=== PATIENT | female | born 1990 | race Asian ===

== ENCOUNTER 2019-12-04 07:38 | Inpatient (IN) ==
[2019-12-04] MEDS ORDERED: OXYTOCIN 30 UNITS/500 ML BAG IV PRN ×2 (08:25→08:27)
--- NOTE | 2019-12-04 08:30 | Labor Progress Brief Note ---
Date of Service December 04, 2019 Subjective notes some vb yesterday. +fm Assessment & Plan (1) IUGR (intrauterine growth restriction): (2) with 39 completed weeks gestation: Admission and Anticipated Discharge Date Admission Date: December 04, 2019 Rascon placed. Plan pitocin per Dr. Herrera . Fetus category one. anticipate . Physical Exam Constitutional: WD/WN, vitals as above Gastrointestinal (Abdomen): soft, gravid, nt Psychiatric: A+Ox3, euthymic affect Genitourinary: cx--visually closed with length cervical rascon placed under direct visualization through the cervix and balloon filled with 30 cc sterile water toco--none efm--130s with mod variability, accels to 150s, no decels Results & Data ([facility]) Vital Signs (Past 12 Hours) Vital Signs Pulse BP 12/04/19 07:53 83 125/77 Coding Level of Care Code None Diagnoses IUGR (intrauterine growth restriction) with 39 completed weeks gestation Z3A.39
--- NOTE | 2019-12-04 08:52 | History & Physical Report ---
Date of Service December 04, 2019 Assessment & Plan (1) : Kendrick is a 29 y/o female currently at 39-1/7 WGA with an LOVE 12/10/19 as determined by US#1 who is here for IOL in the setting of IUGR. Her was complicated by IUGR (EFW 5%, AC 2%). Patient and her , Omer, require translation services in Mandarin Uzbek for limited [place] proficiency. Fetus cat I. - OK to proceed with IOL with Pitocin protocol - Patient requesting epidural -- anesthesia will be consulted - GBS negative - Rapid COVID swab ordered -- none on-file Code: Full code Diet: NPO (2) IUGR (intrauterine growth restriction): Admission and Anticipated Discharge Date Admission Date: December 04, 2019 History of Present Illness Primary Care Provider: [facility] Kendrick is a 29 y/o female currently at 39-1/7 WGA with an LOVE 12/10/19 as determined by US#1 who is here for IOL in the setting of IUGR. Her was complicated by IUGR. Kendrick and her , Omer, require translation services (Mandarin Uzbek) for limited [place] proficiency. Denies contractions; endorses good movement; denies fluid loss; no bloody show Had regular appointments with OB. Labs: (Date 05/29/19) Blood type: B+ Antibody screen: negative H.1 Hct: 35.0 WBC: 9.46 Plt: 141 Rubella: immune VDRL/RPR: NR Gonorrhea: negative Chlamydia: negative HIV: negative HbSAg: negative GBS: negative SARS-CoV-2 (COVID-19): Pending (rapid test obtained at admission) Other screens: cff-DNA: low risk (see scanned documents) CF: negative SMA: negative Allergies Allergy/AdvReac Type Severity Reaction Status Date / Time Cephalosporins Allergy Verified 12/03/19 11:08 Home Medications Home Medications Medication Instructions Recorded Confirmed Type prenat.vits,bartolome,vvk-swro-jhamw 1 tab PO DAILY 05/22/19 12/04/19 History Patient History Medical History (Updated 12/04/19 @ 08:30 by Susan Mera MD, FACOG) Encounter for anatomic survey Hx of varicella Surgical History No pertinent past surgical history Family History (Updated 05/22/19 @ 11:05 by Eden Hunter) Father Dyslipidemia Heart disease Hypertension Grandmother (Maternal) Twins live born in hospital Social History (Updated 05/22/19 @ 11:06 by Eden Hunter) Smoking Status: Never smoker Hx Alcohol Use: No Hx Substance Use: No Preferred Language: Mandarin Uzbek Communication Ability: Effective Communication Tools: IPad Die Out Worker Required: Yes Beliefs That Will Affect Care: None marital status: marital status details: Omer Flanagan (29) [phone] Current Living Situation: Spouse Current Living Situation Comment: lives with and sister current occupational status: student current occupation: [employer] Other Information That Helps Us Care for You: No Feels Safe at Home: Yes Safety Concerns: Feels Safe At This Time Assistive Devices: None Review of Systems no fever, no chills and no sweats denies headache no dyspnea no chest pain, no dyspnea, no dyspnea at rest and no palpitations no dysuria no breast pain Physical Exam Physical Exam: General: Alert, oriented. No acute distress. Cardiac: Regular rate and rhythm, no murmurs/rubs/gallops. Respiratory: Clear to auscultation bilaterally a/p, no wheezes/rales/rhonchi. No increased work of breathing. Symmetrical chest rise. No respiratory distress. Pelvic: Per Dr. Mera -- visually closed, cervical De Los Santos in place Lower Extremities: No lower extremity edema or swelling. No deep calf pain. Magdalena's negative bilaterally Results & Data ([facility]) Vital Signs (Past 12 Hours) Vital Signs Pulse BP 12/04/19 07:53 83 125/77 Code Status & VTE Plan VTE Prophylaxis Plan VTE Prophylaxis will be ordered: No Monitoring External Monitor Baseline: 130s Variability: moderate Accelerations: 15x15 Decelerations: none Tocodynamometer No contractions currently Resident Activity Tracking Resident Involvement: Resident Care Provided Care Provided: Adult Hospital Medicine and OB Delivery
[2019-12-04] MEDS: LACTATED RINGER'S 1,000 ML IV PRN ×3 (08:59→19:00)
[2019-12-04 09:07] LABS: Hematocrit (blood only) 34.7 % (37-47); Hemoglobin 11.9 g/dL (12.0-16.0); Mean Corpuscular Hemoglobin 32.5 pg (25-34); Mean Corpuscular Hgb Conc 34.3 g/dL (32-36); Mean Corpuscular Volume 94.8 fL (80-100); Mean Platelet Volume 11.5 fL (7.4-10.4); Platelet Count 75 K/uL (130-400); Platelet Estimate Decreased (Normal); RDW Coefficient of Variation 13.4 % (11.5-14.5); RDW Standard Deviation 46.4 fL (36.4-46.3); Red Blood Count 3.66 M/uL (4.2-5.4); White Blood Count 6.14 K/uL (4.8-10.8)
[2019-12-04 10:25] LABS: INR 0.9 (0.9-1.1); Partial Thromboplastin Time 28.6 Seconds (21.0-31.0); Prothrombin Time 9.8 Seconds (9.0-12.0)
[2019-12-04 10:49] LABS: Albumin Level 2.5 gm/dl (3.4-5.0); BUN Creatinine Ratio 21.4 (10-20); Calcium 8.7 mg/dl (8.5-10.1); Creatinine Clr Calc Pharmacy 103.8 ml/min; Est GFR (African American) 137.3; Est GFR (Non-African American) 118.5; Potassium 4.2 mmol/L (3.5-5.1)
[2019-12-04 10:51] LABS: Albumin Globulin Ratio 0.7 (0.9-2); Bilirubin,Total 0.3 mg/dl (0.2-1); Globulin 3.8 gm/dl (2.5-4.0); Total Protein 6.3 gm/dl (6.4-8.2)
[2019-12-04 15:37] LABS: Platelet Count 81 K/uL (130-400)
--- NOTE | 2019-12-04 17:05 | Labor Progress Brief Note ---
Date of Service December 04, 2019 Subjective Reason For Note: Routine Evaluation Assessment & Plan (1) : (2) IUGR (intrauterine growth restriction): 29yo G1 a 39.1 weeks GA. IOL for IUGR at term 1. Fetus: Cat 1 2. Labor: Progressing. s/p rascon. Continue pitocin. AROM after epidural 3. GBS: Neg 4. Vitals WNL 5. Gestational thrombocytopenia: Stable Admission and Anticipated Discharge Date Admission Date: December 04, 2019 Physical Exam Genitourinary: OB Exam Abdomen: + vertex Manual OB Exam: + cervical dilation 4 cm, + cervical effacement 80% and + station -1 OB Exam Monitor Tracing: + external FHT monitor used, + external uterine monitor used, + category I and + normal FHT variability; no early decelerations present, no late decelerations present and no variable decelerations Results & Data ([facility]) Vital Signs (Past 12 Hours) Vital Signs Temp Pulse Resp BP 12/04/19 16:30 18 12/04/19 16:28 72 116/73 12/04/19 15:00 18 12/04/19 14:45 70 139/86 12/04/19 14:00 18 12/04/19 13:31 71 118/69 12/04/19 13:30 36.6 C 20 12/04/19 12:30 20 12/04/19 12:00 18 12/04/19 11:30 16 12/04/19 11:18 65 112/71 12/04/19 11:00 20 12/04/19 10:30 20 12/04/19 10:00 20 12/04/19 09:30 18 12/04/19 09:00 20 12/04/19 08:30 18 12/04/19 08:07 18 12/04/19 08:00 36.7 C 20 12/04/19 07:53 83 125/77 Coding Level of Care Code None Diagnoses Z34.90 IUGR (intrauterine growth restriction)
[2019-12-04] MEDS ORDERED: ePHEDrine sulfate 50 MG/ML AMP ONE (17:29)
[2019-12-04] MEDS ORDERED: BUPIVACAINE 0.25% 30 ML VIAL ONE (17:30)
[2019-12-04] MEDS ORDERED: fentaNYL 2MCG/ML ROPIVACAINE 1.25MG/ML 100 ML BAG EPI ONE (17:30)
[2019-12-04] MEDS ORDERED: fentaNYL citrate 100 MCG/2 ML VIAL ONE (17:30)
[2019-12-04] MEDS ORDERED: SODIUM CHLORIDE 0.9% INJ 10 ML VIAL ONE (17:59)
[2019-12-04] MEDS ORDERED: ONDANSETRON INJ 2 MG/ML 2 ML VIAL IV PRN (18:34)
[2019-12-04] MEDS ORDERED: NALOXONE HCL 0.4 MG/1 ML VIAL/CARP IV PRN (18:34)
[2019-12-04] MEDS ORDERED: NALOXONE HCL 1 MG in SODIUM CHLORIDE 0.9% 1000ML 1,000 ML IV PRN (18:34)
[2019-12-04] MEDS ORDERED: diphenhydrAMINE 50 MG/ML VIAL IV PRN (18:34)
[2019-12-04] MEDS ORDERED: fentaNYL 2MCG/ML ROPIVACAINE 1.25MG/ML 100 ML BAG EPI PRN (18:34)
[2019-12-04] MEDS ORDERED: ePHEDrine sulfate 50 MG/ML AMP IV PRN (18:34)
[2019-12-04] MEDS ORDERED: PROMETHAZINE HCL 6.25 MG in SODIUM CHLORIDE 0.9% 50 ML IV PRN (18:34)
--- NOTE | 2019-12-04 18:36 | Anesthesiology Consultation ---
Date of Service December 04, 2019 Assessment & Plan (1) Encounter for pre-operative examination: Chart Review Chart Review: Patient NOT seen in Pre Admission Testing and Acceptable Risk for Labor Epidural Consults Requested none ASA ASA2 Proposed Anesthesia Anesthesia Type: Labor Epidural Risk / Benefits Reviewed With: PT / POA / Parent / Guardian, Accepts Plan and Informed Consent Obtained History Height/Weight Height: 5 ft 3.78 in Weight: 60.781 kg Allergies Allergy/AdvReac Type Severity Reaction Status Date / Time Cephalosporins Allergy Verified 12/03/19 11:08 Medications Home Medications Medication Instructions Recorded Confirmed Last Taken prenat.vits,bartolome,snt-kxcq-vdjtx 1 tab PO DAILY 05/22/19 12/04/19 12/04/19 Active Medications Generic Name Dose Route Start Last Admin Trade Name Freq PRN Reason Stop Dose Admin Lactated Ringer's 1,000 mls @ 125 mls/hr 12/04/19 08:25 12/04/19 18:03 Lr IV 12/06/19 08:24 125 mls/hr .Q8H PRN Infusion L&D Protocol Protocol Oxytocin 30 units in 500 mls @ 3 mls/hr 12/04/19 08:27 12/04/19 10:35 Pitocin IV 12/06/19 08:26 0.18 units/hr .Q24H PRN 3 mls/hr Labor Induction/Augmentation Titration Protocol 0.18 UNITS/HR NPO Date Last Intake of Fluids: 12/04/19 Time Last Intake of Fluids: 08:00 Date Last Intake of Solids: 12/04/19 Time Last Intake of Solids: 08:00 Past Medical History Medical History Encounter for anatomic survey Hx of varicella Exercise / Class Metabolic Activity II 4-5 Yardwork/Stairs/Walk up hill Past Family History Family History Father Dyslipidemia Heart disease Hypertension Grandmother (Maternal) Twins live born in hospital Past Surgical History Surgical History No pertinent past surgical history Past Anesthesia History No Hx of Anesthesia Complications and No Family Hx of Anesthesia Complications History of PONV No Hx of PONV and No Hx of Motion Sickness Social History Smoking Status: Never smoker Hx Alcohol Use: No Hx Substance Use: No substance use type: does not use Physical Exam Vital Signs Last Vital Signs Temp 36.6 C 12/04/19 17:00 Pulse 84 12/04/19 18:34 Resp 20 12/04/19 18:00 BP 112/74 12/04/19 18:34 Pulse Ox 98 12/04/19 18:34 ENMT Mouth: no dentition abnormality Thyromental Distance: > or= 3.5 Finger Breadths Mallampati Class: II Neck normal visual inspection Respiratory normal respiratory effort Auscultation: lungs clear to auscultation bilaterally Cardiovascular Rate/Rhythm: regular rate and regular rhythm Psychiatric Orientation: alert Testing Laboratory Results 12/04/19 15:23 12/04/19 10:02 PT 9.8 Seconds (9.0-12.0) 12/04/19 10:02 INR 0.9 (0.9-1.1) 12/04/19 10:02 APTT 28.6 Seconds (21.0-31.0) 12/04/19 10:02
--- NOTE | 2019-12-04 19:00 | Labor Progress Brief Note ---
Date of Service December 04, 2019 Subjective Reason For Note: Routine Evaluation Assessment & Plan (1) : (2) IUGR (intrauterine growth restriction): 29yo G1 a 39.1 weeks GA. IOL for IUGR at term 1. Fetus: Cat 1 2. Labor: Progressing. s/p rascon. Continue pitocin. AROM 3. GBS: Neg 4. Vitals WNL 5. Gestational thrombocytopenia: Stable Admission and Anticipated Discharge Date Admission Date: December 04, 2019 Physical Exam Genitourinary: OB Exam Abdomen: + vertex Manual OB Exam: + cervical dilation 5 cm, + cervical effacement 80%, + station -1 and + amniotic fluid clear and bloody OB Exam Monitor Tracing: + category I and + normal FHT variability Results & Data ([facility]) Vital Signs (Past 12 Hours) Vital Signs Temp Pulse Resp BP Pulse Ox 12/04/19 18:58 125/68 12/04/19 18:54 76 98 12/04/19 18:53 81 129/61 12/04/19 18:49 61 98 12/04/19 18:48 78 117/70 12/04/19 18:44 98 H 98 12/04/19 18:43 71 115/73 12/04/19 18:39 82 97 12/04/19 18:37 73 124/76 12/04/19 18:34 84 112/74 98 12/04/19 18:33 81 117/68 12/04/19 18:30 18 12/04/19 18:29 85 125/70 97 12/04/19 18:27 80 114/66 12/04/19 18:26 83 139/78 12/04/19 18:25 81 92 12/04/19 18:24 79 96 12/04/19 18:19 74 96 12/04/19 18:14 92 H 96 12/04/19 18:09 79 95 12/04/19 18:08 85 134/87 12/04/19 18:04 75 98 12/04/19 18:00 67 20 139/88 12/04/19 17:59 68 97 12/04/19 17:58 66 132/83 12/04/19 17:56 70 136/86 12/04/19 17:54 66 126/80 98 12/04/19 17:52 67 132/86 12/04/19 17:50 64 125/85 12/04/19 17:49 73 98 12/04/19 17:48 63 122/78 12/04/19 17:44 72 99 12/04/19 17:39 72 97 12/04/19 17:34 68 98 12/04/19 17:30 20 12/04/19 17:29 73 98 12/04/19 17:24 77 99 12/04/19 17:19 71 99 12/04/19 17:00 36.6 C 20 12/04/19 16:30 18 12/04/19 16:28 72 116/73 12/04/19 15:00 18 12/04/19 14:45 70 139/86 12/04/19 14:00 18 12/04/19 13:31 71 118/69 12/04/19 13:30 36.6 C 20 12/04/19 12:30 20 12/04/19 12:00 18 12/04/19 11:30 16 12/04/19 11:18 65 112/71 12/04/19 11:00 20 12/04/19 10:30 20 12/04/19 10:00 20 12/04/19 09:30 18 12/04/19 09:00 20 12/04/19 08:30 18 12/04/19 08:07 18 12/04/19 08:00 36.7 C 20 12/04/19 07:53 83 125/77 Coding Level of Care Code None Diagnoses Z34.90 IUGR (intrauterine growth restriction)
[2019-12-05] MEDS: LACTATED RINGER'S 1,000 ML IV PRN (03:33)
[2019-12-05] MEDS ORDERED: HYDROCORTISONE ACETATE 25 MG SUPP PR PRN (04:22)
[2019-12-05] MEDS ORDERED: DIPHTHERIA/TETANUS/PERTUSSIS 0.5 ML SYR/VIAL IM ONE (04:22)
[2019-12-05] MEDS ORDERED: OXYTOCIN 30 UNITS/500 ML BAG IV PRN (04:22)
[2019-12-05] MEDS ORDERED: ACETAMINOPHEN 325 MG TAB PO PRN (04:22)
[2019-12-05] MEDS ORDERED: bisacodyL 10 MG SUPP PR PRN (04:22)
[2019-12-05] MEDS ORDERED: SUPERCREAM 0.870% 15 GM JAR EXT PRN (04:22)
[2019-12-05] MEDS ORDERED: IBUPROFEN 600 MG TAB PO PRN (04:22)
[2019-12-05] MEDS ORDERED: BENZOCAINE 20% AER SPR 82.5 GM CAN EXT PRN (04:22)
--- NOTE | 2019-12-05 06:01 | Anesthesia Procedure Note ---
Date of Service December 05, 2019 Anesthesia Post Epidural Note Vital Signs Vital Signs: Temp Pulse Resp BP Pulse Ox 37.0 C 99 H 20 94/65 L 92 12/05/19 03:29 12/05/19 05:48 12/05/19 05:15 12/05/19 05:48 12/05/19 05:27 Notes Mental Status: alert / awake / arousable Nausea / Vomiting: adequately controlled Pain: adequately controlled Airway Patency, RR, SpO2: stable & adequate BP & HR: stable & adequate Hydration State: stable & adequate Neuraxial Anesthesia: was administered and sensory block is resolving Anesthetic Complications: no major complications apparent and Pt Satisfied with anesthetic care Epidural: Removed without complications and With tip intact
[2019-12-05] MEDS: PRENATAL VITAMIN 1 TAB PO SCH (09:30)
[2019-12-05] MEDS: DOCUSATE SODIUM 100 MG CAP PO SCH ×2 (09:30→20:32)
--- NOTE | 2019-12-05 11:33 | Delivery Summary ---
DATE OF OPERATION: 12/05/2019 PROCEDURE: Normal spontaneous vaginal delivery, second-degree perineal laceration repair. SURGEON: Clem Herrera MD. PREOPERATIVE DIAGNOSES: 1. Single intrauterine at 39 weeks 2 days gestational age. 2. Intrauterine growth restriction. POSTOPERATIVE DIAGNOSES: 1. Single intrauterine at 39 weeks 2 days gestational age. 2. Intrauterine growth restriction. 3. Status post delivery. ESTIMATED BLOOD LOSS: 300 mL. DRAINS: None. FLUIDS: Continuous lactated ringer. URINE OUTPUT: None. COMPLICATIONS: None. FINDINGS: Viable female infant with weight pending and Apgars of 9 and 9 at 1 and 5 minutes respectively. DESCRIPTION OF PROCEDURE: The patient progressed to 10 cm dilated, 100% effaced, +2 station, pushed over intact perineum with epidural anesthesia and delivered a viable female infant with weight and Apgars as noted above. Head of the delivered in BENNIE position, rest into right transverse. No nuchal cord was noted. Body and shoulders quickly followed. was noted to be vigorous upon delivery. One 1-minute delayed cord clamping was initiated, after which the cord was double clamped and cut. remained on the maternal abdomen as it was vigorous for several minutes before being taken to the waiting nursery staff. Cord blood was then obtained. Attention was then turned to the placenta, delivered intact, 3-vessel cord, gentle cord traction. On inspection of perineum, vagina, and cervix, there was noted to be a second-degree perineal laceration, which was repaired in traditional crown stitch using 3-0 Vicryl. Needle, sponge and instrument counts were correct at the completion of the case. Both mother and were stable in immediate post-delivery period. I attest to the content of the Intraoperative Record and any orders documented therein. Any exception s are noted below.
[2019-12-06 06:35] LABS: Hematocrit (blood only) 33.7 % (37-47); Hemoglobin 11.4 g/dL (12.0-16.0)
--- NOTE | 2019-12-06 06:45 | Obstetrical Progress Note ---
Date of Service December 06, 2019 Assessment & Plan (1) state: ppd 1. ccc Subjective Ambulation: ambulating normally Voiding: no voiding problems Diet Tolerance:: regular diet Lochia:: Small Feeding Type:: breast feeding Current Pain Level(1-10): 2 Results & Data ([facility]) Vital Signs (Past 12 Hours) Vital Signs Temp Pulse Resp BP 12/06/19 03:50 97.9 F 50 L 18 116/69 12/05/19 23:25 97.9 F 60 16 132/74 12/05/19 19:30 98.1 F 64 16 111/71
[2019-12-06] MEDS: PRENATAL VITAMIN 1 TAB PO SCH (09:53)
[2019-12-06] MEDS: DOCUSATE SODIUM 100 MG CAP PO SCH ×2 (09:53→21:09)
[2019-12-06] MEDS ORDERED: bisacodyL 5 MG TABEC PO SCH (20:00)
--- NOTE | 2019-12-07 08:04 | Obstetrical Progress Note ---
Date of Service <Carl Rashid MD - Last Filed: 12/07/19 08:06> December 07, 2019 Assessment & Plan <Carl Rashid MD - Last Filed: 12/07/19 08:06> (1) : - PNL: Rh pos, RI, GBS neg, COVID neg - Feels well today. Eating well, voiding well, ambulating well - Pain well controlled with ibuprofen 600mg Q4H PRN - Routine care - After discharge will have 6 week follow-up with Dr. Herrera - Ready for d/c today Subjective <Carl Rashid MD - Last Filed: 12/07/19 08:06> Kendrick is a 29 y/o female who is PPD #2 following at 39 weeks. She reports feeling well overall this morning. Light abdominal cramping and 0/10 pain well managed on analgesics. Voiding well. Tolerating meals overnight without difficulty. Patient has been able to ambulate some. Has been passing gas and had bowel movement. Has persistent lochia with some improvement this morning. Currently well. Review of Systems Denies fever or chills. Denies shortness of breath or cough. Denies chest pain. Denies breast pain. Denies dysuria. Denies leg pain or leg swelling. Denies headache or changes in vision. Physical Exam <Carl Rashid MD - Last Filed: 12/07/19 08:06> General: Alert, oriented. No acute distress. Cardiac: Regular rate and rhythm. No murmurs. Respiratory: Clear to auscultation bilaterally a/p, no wheezes/rales/rhonchi. No increased work of breathing. Symmetrical chest rise. No respiratory distress. Abdomen: Soft, nontender, nondistended. Bowel sounds present. Uterus: Uterine fundus firm, palpable 2 cm below umbilicus. Lower Extremities: No lower extremity edema or swelling. No deep calf pain. Magdalena's negative bilaterally. Results & Data ([facility]) <Carl Rashid MD - Last Filed: 12/07/19 08:06> Vital Signs (Past 12 Hours) Vital Signs Temp Pulse Resp BP Pulse Ox 12/06/19 23:00 36.6 C 61 18 113/73 97 10/18/20 20:50 36.8 C 60 18 119/77 98 <Janie Kaur MD, FACOG - Last Filed: 12/07/19 08:16> Co-Signing Physician Notes Resident Physician Supervision Note: I was present with [Name of resident] during the history and exam. I discussed the case with the resident and agree with the findings and plan as documented in the note. Any exceptions or clarifications are listed here: [None] Documented By: Janie Kaur MD, FACOG Resident Activity Tracking <Carl Rashid MD - Last Filed: 12/07/19 08:06> Resident Involvement: Resident Care Provided Care Provided: OB Delivery
[2019-12-07] MEDS: PRENATAL VITAMIN 1 TAB PO SCH (09:31)
[2019-12-07] MEDS: DOCUSATE SODIUM 100 MG CAP PO SCH (09:32)
== END 2019-12-07 13:05 | disposition home or self-care (01) | DRG 806 ==
LOC: 4S1 07:38 → 4S2 12-05 14:11